=== PATIENT | male | born 1945 | race Two or more races ===

== ENCOUNTER 2019-06-25 20:24 | Emergency (ER) | payer OTHER ==
[~2019-06-25] VITALS: Ht 172.7 cm; Wt 79.4 kg
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
[2019-06-25] MEDS ORDERED: MORPHINE SULFATE INJ 2 MG/ML DISP.SYRIN ONE (21:19)
[2019-06-25] MEDS ORDERED: ONDANSETRON HCL/PF 4 MG/2 ML VIAL ONE (21:19)
[2019-06-25] MEDS ORDERED: HYDROCODONE/APAP 5/325MG 1 EACH TABLET ONE (21:25)
--- NOTE | 2019-06-25 21:28 | NUR ---
PATIENT REFUSED ALL IV MEDS; DR LANGFORD MADE AWARE, NORCO 5/325 PO WILL BE ORDERED INSTEAD
[2019-06-25] MEDS ORDERED: ONDANSETRON HCL/PF 4 MG/2 ML VIAL IVP ONE (21:30)
[2019-06-25] MEDS ORDERED: HYDROCODONE/APAP 5/325MG 1 EACH TABLET PO ONE (21:30)
[2019-06-25] MEDS ORDERED: MORPHINE SULFATE INJ 2 MG/ML DISP.SYRIN IV ONE (21:30)
[2019-06-26] MEDS ORDERED: KETOROLAC TROMETHAMINE INJ 60 MG/2 ML VIAL IM ONE ×2 (00:27→00:30)
--- NOTE | 2019-06-26 00:31 | NUR ---
YNON: [phone]
--- NOTE | 2019-06-26 01:24 | NUR ---
Patient discharged to home in stable condition. Rx and Written and verbal after care instructions given. Patient verbalizes understanding of instruction. pt was provided w/ a l shoulder sling before d/c and son picked him up.
[2019-06-26 02:18] VITALS: BP 131/85
== END 2019-06-26 01:24 | disposition home or self-care (01) ==
LOC: ER 20:26
DX: S40.012A Contusion of left shoulder, initial encounter (principal); M54.2 Cervicalgia; G89.29 Other chronic pain; V49.69XA Unspecified car occupant injured in collision with other motor vehicles in traffic accident, initial encounter; Y93.89 Activity, other specified; Y92.413 State road as the place of occurrence of the external cause; Y99.8 Other external cause status
CPT/HCPCS: 72125; 73030; 96372; 99284; J1885; J7030; J2270; J2405